=== PATIENT | male | born 1965 | race Caucasian/White ===

== ENCOUNTER 2018-01-13 12:50 | Observation (INO) | payer OTHER ==
[2018-01-13] MEDS ORDERED: NS 500 ML IV ONE (12:55)
[2018-01-13] MEDS ORDERED: ASPIRIN 81 MG CHEWABLE TAB PO ONE (12:55)
--- NOTE | 2018-01-13 13:00 | CPEKG ---
Heart Rate: 86 RR Interval: 698 P-R Interval: 148 QRSD Interval: 94 QT Interval: 380 QTC Interval: 455 P [place]: 44 QRS [place]: -49 T Wave [place]: 35 EKG Severity - ABNORMAL ECG - EKG Impression: UNKNOWN RHYTHM, IRREGULAR RATE 68-112 EKG Impression: LEFT ANTERIOR FASCICULAR BLOCK EKG Impression: CONSIDER ANTEROSEPTAL INFARCT Electronically Signed By: Viridiana Mayers 13-Jan-2018 14:07:55
--- NOTE | 2018-01-13 13:21 | EDPHY ---
H & P Time Seen by Provider: 01/13/18 12:53 HPI/ROS: HPI Chest pain. 52-year-old male by private vehicle. This patient was out on a run. He reports towards the end of his run he started developing left upper chest pain with radiation into the left arm and shoulder. He describes this as an aching burning-like sensation. He reports he has had this pain but to a lesser degree intermittently since last Friday. He reports he stopped running and the pain worsened and he decided to come to the emergency department to be evaluated. Right now he reports a low level of discomfort. He is taken two 81 mg aspirins today. No significant cardiac risk factors. He is not obese. No family history. Denies diabetes hypertension and hyperlipidemia. He does not smoke. ROS: Constitutional: No fever, no chills. No weakness. Eyes: No discharge. No changes in vision. ENT: No sore throat. No nasal congestion or rhinorrhea. Respiratory: No cough. No shortness of breath. Cardiac: As above, no palpitations. Gastrointestinal: No abdominal pain, no vomiting, no diarrhea. Genitourinary: No hematuria. No dysuria or increased frequency with urination. Musculoskeletal: No back pain. No neck pain. No myalgias or arthralgias. Skin: No rashes. Neurological: No headache. No focal weakness or altered sensation. Past medical history: Denies any significant past medical history. Social history: Nonsmoker. He is . Currently here by himself. Drinks alcohol socially. Physically active. Physical Exam: General Appearance: Alert, no distress. This patient is responding to questions appropriately and in full sentences. This patient appears well- hydrated and well-nourished. Eyes: Pupils equal and round no pallor or injection. No lid edema, erythema or injection. Respiratory: There are no retractions, lungs are clear to auscultation with good air movement bilaterally. Cardiovascular: Irregular rate and rhythm. No murmur appreciated. Gastrointestinal: Abdomen is soft and nontender, no masses, bowel sounds normal. No focal tenderness at McBurney's point. No Williamson sign. Neurological: Motor sensory function is grossly intact. Cranial nerves are normal. Gait is normal. Skin: Warm and dry, no rashes. Musculoskeletal: Neck is supple and nontender. Extremities are symmetrical. All joints range without pain or impingement. Psychiatric: No agitation. No depression. Database: EKG: EKG time is 12:58 p.m.; EKG shows a narrow complex normal sinus rhythm with PACs in a trigeminal pattern, ventricular rate of 86. Left anterior fascicular block noted. The ME, QRS, QT intervals are within normal limits. There are no ST-T wave changes indicative of ischemic or injury pattern. No evidence of right heart strain. Interpreted by me. Imaging: Chest x-ray AP portable; the cardiac mediastinal silhouette is unremarkable. No evidence of infiltrate or pneumothorax. No acute cardiopulmonary disease process noted. Interpreted by me. Procedures: Emergency department course: Vital signs reviewed. The patient is moderately hypertensive. Vital signs otherwise normal. IV placed. He was placed on a optimization specialist. He was given 324 mg of chewed aspirin. EKG obtained and reviewed by myself. Heart score of 4 puts him at moderate risk. His story is concerning. I discussed admission with him for serial troponins and provocative testing. He endorses. Point of care troponin is negative. 1:40 p.m., spoke with on-call hospitalist. Patient accepted for admission by Dr. Roma Rutherford. Patient will be transported by private vehicle. 1:50 p.m., patient re-evaluated. Resting comfortably at this time. Currently he has no chest pain. Results of his diagnostic workup including negative troponin discussed with him. His remaining emergency department course under my care has been uneventful. He was transferred by private vehicle with his to [facility]. Differential Diagnosis: The differential diagnosis on this patient includes but is not limited to acute coronary syndrome, pleurisy. Pericarditis, myocarditis, pulmonary embolism, aortic dissection unlikely. This represents a partial list of diagnoses considered. These considerations are based on history, physical exam, past history, reassessment and diagnostic testing. Smoking Status: Never smoked Constitutional: Initial Vital Signs Temperature (C) 37.1 C 01/13/18 12:55 Heart Rate 95 01/13/18 12:55 Respiratory Rate 16 01/13/18 12:55 Blood Pressure 172/98 H 01/13/18 12:55 O2 Sat (%) 95 01/13/18 12:55 O2 Delivery Mode Room Air Allergies/Adverse Reactions: No Known Allergies Allergy (Verified 01/13/18 12:59) Home Medications: Medication Instructions Recorded NK [No Known Home Meds] 01/21/16 Medical Decision Making - Diagnostics Imaging Results: Imaging Impressions Chest X-Ray 01/13/18 13:22 Impression: Negative. - Data Points Laboratory Results: 01/13/18 01/13/18 13:11 13:09 POC Sodium 142 mEq/L mEq/L (135-145) POC Potassium 3.5 mEq/L mEq/L (3.3-5.0) POC Chloride 103.0 mEq/L mEq/L (97-110) POC Total CO2 24 mEq/L mEq/L (22-31) POC BUN 12 mg/dL mg/dL (7-23) POC Creatinine 1.0 mg/dL mg/dL (0.7-1.3) POC Glucose 92 mg/dL mg/dL (70-100) POC Calcium 10.2 mg/dL mg/dL (8.5-10.4) POC Troponin I 0.00 ng/mL ng/mL (0.00-0.08) Medications Given: Discontinued Medications Aspirin (Aspirin) 324 mg PO EDNOW ONE Stop: 01/13/18 12:56 Last Admin: 01/13/18 13:04 Dose: Not Given Point of Care Test Results: Chemistry 01/13/18 01/13/18 13:11 13:09 POC Sodium 142 mEq/L mEq/L (135-145) POC Potassium 3.5 mEq/L mEq/L (3.3-5.0) POC Chloride 103.0 mEq/L mEq/L (97-110) POC Total CO2 24 mEq/L mEq/L (22-31) POC BUN 12 mg/dL mg/dL (7-23) POC Creatinine 1.0 mg/dL mg/dL (0.7-1.3) POC Glucose 92 mg/dL mg/dL (70-100) POC Calcium 10.2 mg/dL mg/dL (8.5-10.4) POC Troponin I 0.00 ng/mL ng/mL (0.00-0.08) Departure - Departure Disposition: [facility] Inpatient Acute Clinical Impression: Chest pain
[2018-01-13] MEDS ORDERED: ONDANSETRON 4 MG/2 ML VIAL IVP PRN (18:04)
[2018-01-13] MEDS ORDERED: ACETAMINOPHEN 325 MG TAB PO PRN (18:04)
--- NOTE | 2018-01-13 18:55 | GHP ---
[f rep st] HISTORY AND PHYSICAL DATE OF ADMISSION: 01/13/2018 CHIEF COMPLAINT: Chest pain. HISTORY: The patient is a 52-year-old male who went for a 25-minute run this morning. His exercise routine had fallen by the wayside through the winter, and he is now restarting on an exercise plan. About 25 minutes into his run, he developed a left-sided chest pain that radiated down his left arm. He came to the emergency room. The chest pain relieved after resting for about 1 hour. He had a li ttle bit of a similar pain last Friday, but he thought it might be a strain due to some recent kayaki ng. He describes as a dull, burning pain, nonpleuritic, no shortness of breath. PAST MEDICAL HISTORY: Negative. MEDICATIONS: None. ALLERGIES: No known drug allergies. SOCIAL HISTORY: No smoking, 1-2 alcoholic beverages 3-4 times a week. He lives with his . REVIEW OF SYSTEMS: Complete review of systems obtained. Review of systems negative on constitutiona l, HEENT, GI, pulmonary, cardiovascular, , hematology, skin, muscular, endocrine, psych except for positives and negatives as in HPI. FAMILY HISTORY: Both his parents are alive and healthy. There is no history of early coronary arter y disease. PHYSICAL EXAMINATION: GENERAL: Well-developed, well-nourished male, in no acute distress. VITAL SI GNS: Temperature 36.8, pulse 55, blood pressure 132/82, satting at 97% on room air. EYE: Normal co njunctivae. Pupils round and reactive to light. ENT: Normal ears and nose. Hearing intact. Natacha l teeth. Oropharynx moist. NECK: Trachea midline. No thyromegaly. CHEST: Normal respiratory eff ort. LUNGS: Clear to auscultation bilaterally. CARDIOVASCULAR: Regular rate, rhythm. No murmur. No extremity edema. ABDOMEN: Soft, nontender. No hepatosplenomegaly. SKIN: Warm, dry, intact wi thout rash. MUSCULOSKELETAL: No cyanosis or clubbing. Strength 5/5 in upper and lower extremities. NEURO: Cranial nerves intact, normal sensation to light touch. PSYCH: Alert and oriented x3. No rmal affect. Normal judgment and insight. Normal memory. LABORATORY DATA: Sodium 142, potassium 3.5, chloride 103, bicarb 24, BUN 12, creatinine 1.0, glucose 92. Troponins negative. A chest x-ray is negative. EKG reviewed by me. My personal interpretatio n is wandering atrial pacemaker and possible anterior septal Q waves. ASSESSMENT/PLAN: Chest pain, concerning history, although his risk factor burden is low. Will follo w serial troponins and EKGs. If these remain unremarkable, then exercise treadmill test in the [facility]. CODE STATUS: Full. ADMISSION STATUS: Will admit to observation. Reevaluation tomorrow regarding ongoing need for hospi talization. DVT PROPHYLAXIS: He is low risk. /[id number]/MODL
[2018-01-14 05:38] LABS: PLATELET COUNT 255 10^3/uL (150-400)
[2018-01-14] MEDS ORDERED: ASPIRIN EC 325 MG TAB PO SCH (09:00)
--- NOTE | 2018-01-14 09:15 | CPEKG ---
Heart Rate: 67 RR Interval: 896 P-R Interval: 148 QRSD Interval: 92 QT Interval: 408 QTC Interval: 431 P [place]: 19 QRS [place]: -40 T Wave [place]: 26 EKG Severity - ABNORMAL ECG - EKG Impression: SINUS RHYTHM EKG Impression: LEFT AXIS DEVIATION EKG Impression: CONSIDER ANTEROSEPTAL INFARCT EKG Impression: COMPARED WITH 01/13/2018 ATRIAL ECTOPY NOW RESOLVED Electronically Signed By: Luzmaria Montejo 15-Jan-2018 08:27:55
[2018-01-14] MEDS ORDERED: TEMAZEPAM 15 MG CAP PO PRN (12:01)
[2018-01-14] MEDS ORDERED: DIAZEPAM 5 MG TAB PO ONE (12:01)
[2018-01-14] MEDS ORDERED: FAMOTIDINE 20 MG TAB PO ONE (12:01)
[2018-01-14] MEDS ORDERED: diphenhydrAMINE 25 MG CAP PO ONE (12:01)
[2018-01-14] MEDS ORDERED: NITROGLYCERIN 0.4 MG BTL SL PRN (12:01)
[2018-01-14] MEDS ORDERED: NS 1,000 ML IV SCH (12:15)
--- NOTE | 2018-01-14 12:30 | ASMTCMCOM ---
CM Note CM Note Notes: 01/14/2018 Case Management Note Reviewed chart. Pt was admitted after an episode of chest pain for subsequent work up. There are no case management needs identified d/t pt age, marital status and activity levels prior to admission. Pt regularly runs for exercise. There are no therapies ordered at this time. Case Management d/c poc: anticipating independent with follow up as directed. Case Management available if needs change. Date Signed: 01/14/2018 12:30 PM Electronically Signed By:Lia Pérez RN
--- NOTE | 2018-01-14 13:20 | CPR ---
[f rep st] NONINVASIVE CARDIAC PROCEDURE REPORT PROCEDURE: Exercise treadmill test. SUPERVISING HOME HELP AIDE: Dr. Solitario Osman. INDICATION FOR STRESS TESTING: Ongoing chest pressure. PRE: After obtaining informed consent, the patient was placed on electrocardiogram. Initial EKG lesli ws sinus rhythm, normal axis, peak T-waves noted in V3 and V4. Patient reporting mild dull chest pre ssure since hospital admission greater than 12 hours, but no shortness of breath or other symptoms garrison ggesting of ischemia. STRESS: Patient was placed on exercise treadmill, following standard Didier protocol with the followi ng findings: 1. Patient exercised for 8 minutes. 2. 9.3 METS. 3. Heart rate obtained was 145 beats per minute, which was 86% of maximum predicted heart rate. 4. The patient was noted to have [address] depression in inferior lateral leads. 5. Patient reported increased chest pressure during peak exercise with radiation into his left arm. 6. Patient had no arrhythmias during testing. 7. SpO2 greater than 90% throughout testing. 8. Blood pressure response: Rest 146/80, peak 180/90. 9. Test was stopped due to maximum effort. 10. [place] treadmill score of -1 placing him at intermediate risk. RECOVERY: Patient recovered for 5 minutes. Within 2 minutes of recovery, patient reporting symptoms of chest pressure. Symptoms subsided. Vital signs remained stable, EKG returned to baseline. Afte r recovery, the patient was taken back to the PCU. IMPRESSION: A 52-year-old male reporting ongoing episodes of chest pressure over the last week and h assisted, with worsening pain last evening. Exercise treadmill testing showing ST depression suggesting p ossible ischemia. Patient also experienced exertional chest pressure on treadmill, which subsided wi thin 2-3 minutes of rest. [place] treadmill score of -1. This is a positive stress test suggestive of ischemia. Results went over with Dr. Osman and called to Dr. Patrick of hospitalist services who has requested a Cardiology consultation. /[id number]/MODL
[2018-01-14] MEDS ORDERED: LIDOCAINE 1% 300 MG/30 ML SDV ONE (13:26)
[2018-01-14] MEDS ORDERED: IOPAMIDOL (ISOVUE-370) 150 ML BTL IV ONE (13:27)
[2018-01-14] MEDS ORDERED: fentaNYL 100 MCG/2 ML INJ ONE (13:27)
[2018-01-14] MEDS ORDERED: MIDAZOLAM 2 MG/2 ML VIAL ONE (13:27)
[2018-01-14] MEDS ORDERED: HEPARIN 10,000 UNIT/10 ML MDV (1,000 UNIT/ML) ONE (13:27)
[2018-01-14] MEDS ORDERED: VERAPAMIL 5 MG/2 ML VIAL ONE (13:27)
--- NOTE | 2018-01-14 13:42 | PDHPUP ---
History & Physical Update H&P update statement: This history and physical update is based on an assessment of the patient which was completed after admission or registration (within 24 hours), but prior to the surgery/procedure. H&P update: H&P reviewed & patient examined, no change in patient's condition since H&P completed
--- NOTE | 2018-01-14 13:43 | PDPROPOC ---
Sedation Plan of Care Sedation Plan of Care: vital signs stable, mental status noted, patient educated of risks, benefits, alternatives, patient can tolerate sedation ASA Classification: ASA 1 Planned drugs: fentanyl, midazolam Mallampati Score: Class 1 Mallampati Reference Image: Patient passed 3-3-2 rule?: Yes
--- NOTE | 2018-01-14 14:20 | GCON ---
[f rep st] CONSULTATION CARDIOLOGY CONSULTATION SUPERVISING TIMING ADJUSTER: Dr. Solitario Osman. INDICATION FOR CARDIOLOGY CONSULTATION: Chest pressure, abnormal stress test. REQUESTING CONSULTATION: Dr. Jaden Patrick of Hospital Services. HISTORY OF PRESENT ILLNESS: The patient is a 52-year-old male who reports no significant past cardiac history who informs me today that starting , he had developed an upper midsternal chest pressure that would come on briefly then dissipate. Symptoms spontaneously. Sometimes with exertion. He reporting no associated symptoms of shortness of breath or diaphoresis. He says throughout the week, he has noted little episodes, reporting nothing significantly severe until yesterday afternoon when he was on a significant walk and developed left upper pain in his chest. Worse than he had experienced in the last week, this was also associated with left arm numbness. He describes this as a burning-like sensation. He immediately stopped exercising and decided to come to the emergency department for further evaluation. He reports within an hour of hospital admission, this pressure had subsided without any significant medical treatment. It was noted on admission that his initial electrocardiogram showed sinus rhythm with frequent PACs, leftward axis , noted Q-waves in V1 and possibly V2. Initial troponin level was negative. He was transferred to the hospital services and he has been on PCU where he has maintained sinus rhythm with no malignant arrhythmias. He reports since hospital admission, he continued to have a mild dull chest pressure. Overnight , troponin levels remain within normal limits. He did undergo exercise treadmill testing later this morning in which he was noted to have ST depression with exertion and also noted to have increased chest pressure with left arm numbness at peak exercise. No other malignant arrhythmias or positives noted. At time of my consultation, he is currently pain free. He has significant cardiac risk factors that include sex, borderline hyperlipidemia, and reporting maternal family history of coronary artery disease in grandmother and father, both in their 80s. PAST MEDICAL HISTORY: Patient reports borderline hyperlipidemia for which he takes red yeast rice. PAST SURGICAL HISTORY: Denies. FAMILY HISTORY: Patient reports maternal grandmother and father both had heart disease in their late 80s. SOCIAL HISTORY: He is . He has no children. He works for [employer]. He denies any history of smoking. He drinks 1-2 alcoholic beverages 2-3 times a week. He denies any illicit drug use. ALLERGIES: He has no known drug allergies. MEDICATIONS: At home: He reports he takes red yeast rice on a daily basis due to history of hyperlipidemia. REVIEW OF SYSTEMS: A 10-point review of his systems done on the patient. All negative, except as mentioned above. PHYSICAL EXAMINATION: GENERAL APPEARANCE: Medium built, well-groomed male. He is alert and oriented to person, place, time, and situation. Appears to be in no acute distress. VITAL SIGNS: Currently, blood pressure of 143/91, heart rate 83, sinus rhythm on the monitor. Respirations 16 saturating 93% on room air. Temperature 36.4 degrees Celsius. HEENT: Head is normocephalic. Lips and tongue are pink and moist with no signs of cyanosis. Conjunctivae pink. NECK: Trachea is midline, +2 carotid pulses bilaterally. No auscultated bruits. No jugular vein distention. RESPIRATORY: Lungs are clear to auscultation, no rhonchi, rales or wheezes. No accessory muscle use. No intercostal muscle retraction noted. CARDIAC: Regular rate, regular rhythm, S1, S2. No S3, S4, gallops, rubs, or murmurs noted. ABDOMEN: Soft, nontender, bowel sounds x4 quadrants. No organomegaly. No palpable masses. SKIN: [place], warm, dry, no cyanosis, no clubbing, no peripheral edema. VASCULAR: +2 carotids bilateral, +2 radials bilateral, +2 dorsal pedal and posterior tibial pulses bilateral. LABORATORY STUDIES: Drawn in the emergency department yesterday. Sodium of 142 , potassium 3.5, chloride 103, CO2 of 24, BUN 12, creatinine 1.0, glucose 92, calcium 10.2, initial troponin 0.00. Drawn today, WBC of 6.54, hemoglobin 15.4, hematocrit 43.2, platelet count 255, triglycerides. A repeated troponin was less than 0.012. Triglycerides were 108 total cholesterol 170. LDL of 103 and HDL 45. STUDIES: Electrocardiogram in the emergency department as mentioned above. Chest x-ray in the emergency department on admission showing no acute cardiopulmonary process. Stress testing, as mentioned above. ASSESSMENT AND PLAN: 1. Chest pressure: Patient reporting history of chest pressure. Ongoing for the last week. Occasionally with exertion, spontaneously. The patient was noted to have a positive stress testing suggestive of ischemia, with associated symptoms during exertion of left anterior chest pressure with radiation down his left arm. He is currently pain free. He has had negative troponins x3. We discussed discuss potential treatment plans including medical therapy, repeat stress testing with nuclear imaging, or further evaluation with cardiac catheterization. Due to his active lifestyle, symptoms noted on stress testing , he is wanting to undergo coronary angiogram for further evaluation. Risks and benefits of this procedure were explained to the patient. He verbalizes understanding and is wanting to proceed. We will schedule for him to have this done later this afternoon by Dr. Osman. Until then, he has had aspirin therapy. We will hold off of beta-cecelia therapy at this time and due to negative troponins will hold off anticoagulation. 2. Borderline hyperlipidemia. Patient reporting history of borderline hyperlipidemia, noted to have mildly elevated LDL at 103. Patient reports history of red yeast rice usage. Depending on results of cardiac catheterization, consideration of stopping his red yeast rice and putting him on statin therapy, with ideal goal of getting LDL of less than 70. Thank you for this consultation. Further recommendations will come post cardiac catheterization. /[id number]/MODL MTDD
--- NOTE | 2018-01-14 15:04 | PDDXCAT ---
Diagnostic Cath Note - . Date: 01/14/18 Scallop Cutter Machine: Jacqui Indication: other (New onset [place] Cardiovascular Society class 2 angina with exertion. Abnormal stress test with an intermediate risk due treadmill score.) - Procedure Access: right wrist Procedure: left heart catheterization, coronary angiography, left ventriculogram - Materials Left Heart Cath size: 5F Left Heart Cath materials: JL3.5, JR4.0, pigtail - Findings-Left Heart Catheterization LM: Large caliber vessel. Bifurcates appropriately into the left anterior descending and circumflex. Angiographically free of disease. LAD: Large caliber vessel. 4 small diagonal branches. Minimal luminal irregularities with no obstructive lesions. LCX: Moderate caliber vessel. 3 obtuse marginal branches identified. Minimal luminal irregularities with no obstructive lesions. RCA: Large caliber dominant vessel. The PDA is noted. There are no significant posterolateral branches. Minimal luminal irregularities with no obstructive lesions. EDP: 18 mmHg. LVEF: 65%. Wall motion: Normal. Complications: None. Estimated blood loss: <50ml Closure method: TR Band Assessment: Minimal atherosclerotic coronary artery disease characterized by intravascular luminal irregularities with no obstructive lesions. Atypical chest discomfort. Likely false-positive stress test. Plan: Patient will be evaluated for alternate etiologies to his chest discomfort. Recommendations are for low-dose aspirin and statin therapy in light of premature atherosclerosis. Intervention: None. Patient Problems: Problems Problem Status Onset Chest pain Acute
[2018-01-14] MEDS ORDERED: ATROPINE SULFATE 1 MG/10 ML SYR IVP PRN (15:24)
[2018-01-14 16:13] VITALS: BP 127/95
--- NOTE | 2018-01-14 16:15 | HOSPPROG ---
Hospitalist Progress Note Assessment/Plan: 52 yo M w cp false + stress cath w mild luminal irregularities Subjective: cath w mli. d/w rosamaria theron, cardiology [employer] Objective: Vital Signs Temp Pulse Resp BP Pulse Ox 36.4 C 83 16 123/71 H 94 01/14/18 11:50 01/14/18 11:50 01/14/18 15:46 01/14/18 15:46 01/14/18 15:46 Laboratory Results 01/14/18 05:03 01/13/18 01/14/18 01/15/18 05:59 05:59 05:59 Intake Total 1250 Balance 1250 - Physical Exam Constitutional: no apparent distress, appears nourished Eyes: PERRL, anicteric sclera Ears, Nose, Mouth, Throat: moist mucous membranes, hearing normal Cardiovascular: regular rate and rhythym, no murmur, rub, or gallop Respiratory: no respiratory distress, no rales or rhonchi Gastrointestinal: normoactive bowel sounds, soft, non-tender abdomen Genitourinary: no bladder fullness, No driscoll in urethra Skin: warm, normal color Musculoskeletal: full muscle strength Neurologic: AAOx3 ICD10 Worksheet Patient Problems: Problems Problem Status Onset Chest pain Acute
--- NOTE | 2018-01-14 16:31 | GDS ---
[f rep st] DISCHARGE SUMMARY DISCHARGE DIAGNOSIS: Chest pain. Please see admission history and physical by Dr. Roma Rutherford. The patient presented with exertional chest pain, concerning story, radiated to his left arm. He had an EKG with slightly abnormal showing, left anterior fascicular block. He underwent a stress test w ith chest pain and some ST depression. Subsequent angiogram showed no occlusive coronary disease, mi ld luminal irregularities. PE was considered, but felt unlikely given his absence of oxygen requirem ent, pleuritic symptoms or tachycardia. DISPOSITION: He is discharged home. PLAN: He is starting a statin for an LDL of 103 and a baby aspirin. /[id number]/MODL
--- NOTE | 2018-01-14 17:53 | ASDISCHSUM ---
Discharge Information Plan Status:Home with No Needs Medically Cleared to Leave:01/14/2018 Discharge Date:01/14/2018 CM D/C Disposition:Home, Routine, Self-Care ADT D/C Disposition: Projected Discharge Date:01/14/2018 Transportation at D/C:Self Discharge Delay Reason: Follow-Up Date:01/14/2018 Discharge Slot: Final Diagnosis: Placement Information Patient Contact Information Contact Name:ANABELL Relationship: Address:[address] [place] [address] City:[place] Phone: State/Zip Code:[place] [address] Email: Financial Information Financial Class:[facility] Primary Plan Desc:[employer] OPEN ACC LOCAL Primary Plan Number:[id number] Secondary Plan Desc: Secondary Plan Number: Assessment Information [facility] CM Progress Note CM Note CM Note Notes: 01/14/2018 Case Management Note Reviewed chart. Pt was admitted after an episode of chest pain for subsequent work up. There are no case management needs identified d/t pt age, marital status and activity levels prior to admission. Pt regularly runs for exercise. There are no therapies ordered at this time. Case Management d/c poc: anticipating independent with follow up as directed. Case Management available if needs change. Date Signed: 01/14/2018 12:30 PM Electronically Signed By:Lia Pérez RN Intervention Information
== END 2018-01-14 17:54 | disposition home or self-care (01) ==
LOC: CED 12:50 → CEDHOLD 13:41 → F2W 16:50
PROVIDERS: ADMIT Internal Medicine; ATTEND Internal Medicine
PROC: B2151ZZ Fluoroscopy of Left Heart using Low Osmolar Contrast (ICD-10-PCS; principal; 2018-01-13)
PROC: B2111ZZ Fluoroscopy of Multiple Coronary Arteries using Low Osmolar Contrast (ICD-10-PCS; principal; 2018-01-13)
PROC: 4A023N7 Measurement of Cardiac Sampling and Pressure, Left Heart, Percutaneous Approach (ICD-10-PCS; principal; 2018-01-13)
DX: R07.89 Other chest pain (principal); E78.5 Hyperlipidemia, unspecified
CPT/HCPCS: 71045; 93005; 93017; 93458; 99285; G0378; 80048-PO; 84484-PO; C1769; J1644; J2250; J3010; Q9967